=== PATIENT | female | born 1960 | race Caucasian/White ===

== ENCOUNTER → 2018-07-21 | Outpatient (CLI) | payer BC ==
--- NOTE | 2018-07-22 09:22 | MR ---
EXAMINATION TYPE: MR brain wo/w con DATE OF EXAM: 07/21/2018 7:10 PM COMPARISON: NONE HISTORY: Occipital neuralgia rt side, colon ca diagnosed Apr 2018 CONTRAST: Patient received 12 mL intravenous Gadavist gadolinium contrast. Multiplanar and multispin-echo imaging of the brain was performed . Pre and post contrast enhanced i mages are obtained. The ventricles, basal cisterns and sulci overlying the cerebral convexities are mildly enlarged. There is evidence of mild periventricular white matter ischemic demyelination. Focus of increased signal right midbrain measuring 6 mm on inversion recovery data set. Additional in version recovery data set increased signal involving the right thalamus measuring 8 mm. Heterogenous increased signal involving the basal ganglia right greater than left. No acute edema is seen on diffusion weighted imaging. There is no evidence for midline shift or mass effect. Acute intracranial hemorrhage or extra-axial collection is not evident. No enhancing lesions are seen. The paranasal sinuses and mastoid air cells are well-aerated. IMPRESSION: 1. Foci of inversion recovery data set increased signal right midbrain and right thalamus as well as the bilateral basal ganglia are nonspecific and could reflect demyelinating disease, sequela vasculit is or chronic migraine headaches as well as Lyme's disease among other possibilities. 2. Age-related atrophic and chronic small vessel ischemic change. No acute intracranial process at t his time. 3. No enhancing lesions are seen.
== END | disposition home or self-care (01) ==
LOC: RADMRIMAIN 17:37
PROVIDERS: ATTEND Psychiatry & Neurology Neurology
DX: G31.1 Senile degeneration of brain, not elsewhere classified (principal); I67.82 Cerebral ischemia
CPT/HCPCS: 82565; 70553; 36415; A9585

== ENCOUNTER → 2022-06-19 | Outpatient (CLI) | payer BC ==
--- NOTE | 2022-06-19 15:07 | MM ---
Reason for Exam: Clinical finding. Last mammogram was performed 1 year(s) and 9 month(s) ago. Indicated Problems: Lump or thickening of the left side (size 10). Patient History: Menarche at age 12. First Full-Term at age 23. Postmenopausal. Risk Values: Antonietta 5 year model risk: 1.4%. NCI Lifetime model risk: 6.2%. Prior Study Comparison: 03/26/2020 Bilateral MG screening mammo w CAD - 2, Unknown. 05/01/2020 Bilateral MG screening mammo w CAD - 2, Unknown. 09/19/2020 Bilateral MG screening mammo w CAD - 2, Unknown. Tissue Density: The breast tissue is heterogeneously dense. This may lower the sensitivity of mammography. Findings: Analyzed By CAD. Palpable area on mammography correlates with masslike fibroglandular tissue best appreciated on and MLO imaging measuring up to 2.8 cm approximately 10 cm from the breast. Further evaluation with ultrasound recommended. No suspicious calcification.Palpable area on mammography correlates with masslike fibroglandular tissue best appreciated on and MLO imaging measuring up to 2.8 cm approximately 10 cm from the breast. Further evaluation with ultrasound recommended. No suspicious calcification. No suspicious masses calcifications or distortions in the right breast. Overall Assessment: Incomplete: need additional imaging evaluation, BI-RAD 0 Management: Diagnostic Breast Ultrasound of the left breast. A clinical breast exam by your physician is recommended on an annual basis and results should be correlated with mammographic findings. This exam should not preclude additional follow-up of suspicious palpable abnormalities. Results were given to the patient verbally at the time of exam. Electronically signed and approved by: Cornelio Stanton DO
== END | disposition home or self-care (01) ==
LOC: RADMAMWWP 14:06
PROVIDERS: ATTEND Obstetrics & Gynecology
DX: N63.20 Unspecified lump in the left breast, unspecified quadrant (principal); Z78.0 Asymptomatic menopausal state
CPT/HCPCS: 77062; 77066

== ENCOUNTER → 2022-07-02 | Day surgery (SDC) | payer BC | LOC: RADUSWWP 12:36 | PROVIDERS: ATTEND Surgery | DX: N60.12 Diffuse cystic mastopathy of left breast (principal); N60.92 Unspecified benign mammary dysplasia of left breast; R92.8 Other abnormal and inconclusive findings on diagnostic imaging of breast | CPT/HCPCS: 88305; 77065; 19083; A4648 ==

== ENCOUNTER → 2022-07-23 | Outpatient (CLI) | payer BC ==
[2022-07-23 14:23] VITALS: BP 104/69; PULSE 84; RESP 17; TEMP 97.9
--- NOTE | 2022-07-23 14:45 | P.GSHP ---
History of Present Illness H&P Date: 07/23/22 Chief Complaint: left breast lump Maru is a 61 year old white female with a complaint of a fullness in her left breast. She had a bilateral mammogram on 06-19-22 which led to an ultrasound on the same date of the left breast. The pathology was felt to be benign specific. This was reviewed with Dr. Vanessa. repeat left breast mammogram in 6 months was recommended. The patient is not complaining of any new lumps masses or nodules of concern in either breast. She has never had any surgery on her breast. She does not complain of any recent trauma or infection in the breast. Caffeine: 1 cup/day nicotine: none chocolate: occasional BCP: 5 years hormones: none Family history: none Hormonal History: menarche: 12 , breast fed: no, age at first : 22 menopause: 54 Surgical History: colon resection for cancer, 2018 bone removed from left toe Medical History: HTN Social History: nicotine: none alcohol: monthly drugs: none - Constitutional Constitutional: Denies chills, Denies fever - EENT Eyes: denies blurred vision, denies pain Ears: deny: decreased hearing, tinnitus Ears, nose, mouth and throat: Denies headache, Denies sore throat - Breasts Breasts: bilateral: as per HPI - Cardiovascular Cardiovascular: Denies chest pain, Denies shortness of breath - Respiratory Respiratory: Denies cough, Denies 7 - Gastrointestinal Gastrointestinal: Denies abdominal pain, Denies diarrhea, Denies nausea, Denies vomiting - Genitourinary (Female) Genitourinary: Denies dysuria, Denies hematuria - Menstruation Menstruation: Reports postmenopausal - Musculoskeletal Musculoskeletal: Denies myalgias - Integumentary Integumentary: Denies pruritus, Denies rash - Neurological Neurological: Denies numbness, Denies weakness - Psychiatric Psychiatric: Denies anxiety, Denies depression - Endocrine Endocrine: Denies fatigue, Denies weight change - Hematologic/Lymphatic Comment: none - Allergic/Immunologic Allergic/Immunologic: Reports as per HPI Past Medical History Past Medical History: Hypertension Additional Past Medical History / Comment(s): Osteoporosis History of Any Multi-Drug Resistant Organisms: None Reported Additional Past Surgical History / Comment(s): Colon cancer 2018 with surgery, no radiation or chemo Past Anesthesia/Blood Transfusion Reactions: No Reported Reaction Past Psychological History: No Psychological Hx Reported Smoking Status: Never smoker Past Alcohol Use History: Occasional Past Drug Use History: None Reported Medications and Allergies Home Medications Medication Instructions Recorded Confirmed Type Alendronate Sodium [Fosamax] 70 mg PO WEEKLY 06/23/22 07/23/22 History Calcium Carbonate/Vitamin D3 2 each PO DAILY 06/23/22 07/23/22 History [Calcium 600 mg-D3 10 Mcg (400 Iu)] Cyanocobalamin [Vitamin B-12 1,000 mcg IM QMONTHLY 06/23/22 07/23/22 History Injection] Ergocalciferol [Vitamin D2 (1250 1,250 mcg PO WEEKLY 06/23/22 07/23/22 History Mcg = 95864 Iu)] hydroCHLOROthiazide [Hydrodiuril] 25 mg PO DAILY 06/23/22 07/23/22 History lisinopriL [Prinivil] 10 mg PO DAILY 06/23/22 07/23/22 History Allergies Allergy/AdvReac Type Severity Reaction Status Date / Time No Known Allergies Allergy Verified 07/23/22 14:06 Surgical - Exam Vital Signs Temp Pulse Resp BP Pulse Ox 97.9 F 84 17 104/69 96 07/23/22 14:21 07/23/22 14:21 07/23/22 14:21 07/23/22 14:21 07/23/22 14:21 BMI: 41.8 - General no distress - Eyes normal ocular movement - Neck trachea midline - Respiratory normal respiratory effort, clear to auscultation - Cardiovascular Rhythm: regular Heart Sounds: normal: S1, S2 - Abdomen Abdomen: soft, non tender, no guarding, no rigid, no rebound - Integumentary normal turgor - Neurologic no disoriented, no combative - Musculoskeletal normal gait, normal posture - Psychiatric oriented to time, oriented to person, oriented to place, speech is normal, memory intact Breast Exam: BRA: 42D inspection: Bilateral grade 2/3 ptosis Palpation: Right breast: Multi-positional exam fibrocystic changes no dominant masses or nodules of concern Right axilla: No adenopathy of concern Left breast: Multi-positional exam fibrocystic changes no dominant masses or nodules of concern Left axilla: No adenopathy of concern Results Mammogram and ultrasound personally reviewed with Dr. Salinas Assessment and Plan Assessment: Impression: Fibrocystic breast changes Personal history of colon cancer did not have chemo or radiation therapy Patient status post [place] [address] felt to be benign and concordant Plan: Repeat left breast mammogram and ultrasound in 6 months with position exam at that time At this time there is nothing which would warrant interventional biopsy either on palpation or radiographically If patient notes anything of concern she will call us sooner CC: DR. Caro
== END ==
LOC: WWCWWP 13:54
PROVIDERS: ATTEND Surgery
DX: N60.22 Fibroadenosis of left breast (principal); I10 Essential (primary) hypertension; M81.0 Age-related osteoporosis without current pathological fracture

== ENCOUNTER → 2022-12-31 | Outpatient (CLI) | payer BC ==
--- NOTE | 2022-12-31 13:22 | MM ---
Reason for Exam: Follow-up at short interval from prior study. Last screening mammogram was performed 7 month(s) ago. Patient History: Menarche at age 12. First Full-Term at age 23. Postmenopausal. 07/02/2022, Benign US biopsy breast VAD LT on the left side. Risk Values: Antonietta 5 year model risk: 1.7%. NCI Lifetime model risk: 7.1%. Prior Study Comparison: 09/19/2020 Bilateral MG screening mammo w CAD - 2, Unknown. 06/19/2022 Bilateral MG 3D diag mammo w/cad [facility]. 07/02/2022 Left MG diagnostic mammo LT wo CAD., [facility]. Tissue Density: Left: The breast tissue is heterogeneously dense. This may lower the sensitivity of mammography. Findings: Analyzed By CAD. Postprocedural changes with biopsy clip present. No new suspicious masses, calcifications or distortions. Overall Assessment: Incomplete: need additional imaging evaluation, BI-RAD 0 Management: Diagnostic Breast Ultrasound of the left breast. Results were given to the patient verbally at the time of exam. Patient should continue monthly self-breast exams. A clinical breast exam by your physician is recommended on an annual basis. This exam should not preclude additional follow-up of suspicious palpable abnormalities. Note on Antonietta scores and lifetime risk: 1. A Antonietta score greater than 3% is considered moderate risk. If this is the case, consider specialist referral to assess eligibility for a risk reducing agent. 2. If overall lifetime risk for the development of breast cancer is 20% or higher, the patient may qualify for future screening with alternating mammogram and breast MRI. Electronically signed and approved by: Cornelio Stanton DO
--- NOTE | 2022-12-31 14:08 | USB ---
Reason for Exam: Follow-up at short interval from prior study. Patient History: Menarche at age 12. First Full-Term at age 23. Postmenopausal. 07/02/2022, Benign US biopsy breast VAD LT on the left side. Risk Values: Antonietta 5 year model risk: 1.7%. NCI Lifetime model risk: 7.1%. Technique: Method: Targeted. Prior Study Comparison: 09/19/2020 Bilateral MG screening mammo w CAD - 2, Unknown. 06/19/2022 Bilateral MG 3D diag mammo w/cad [facility]. 07/02/2022 Left MG diagnostic mammo LT wo CAD., [facility]. Findings: The lower section of the breast of the left breast, the axilla of the left breast and the retroareolar of the left breast were scanned. Imaged: Ultrasound imaging of: Area of concern, retroareolar region and axilla. No evidence for organizing fluid collection or mass. Overall Assessment: Benign, BI-RAD 2 Management: Diagnostic Mammogram of both breasts in 1 year. A clinical breast exam by your physician is recommended on an annual basis and results should be correlated with mammographic findings. This exam should not preclude additional follow-up of suspicious palpable abnormalities. Results were given to the patient verbally at the time of exam. Electronically signed and approved by: Cornelio Stanton DO
== END | disposition home or self-care (01) ==
LOC: RADMAMWWP 12:43
PROVIDERS: ATTEND Surgery
DX: R92.8 Other abnormal and inconclusive findings on diagnostic imaging of breast (principal); Z78.0 Asymptomatic menopausal state
CPT/HCPCS: 77061; 77065

== ENCOUNTER → 2023-01-01 | Outpatient (CLI) | payer BC ==
--- NOTE | 2023-01-01 12:47 | P.PN ---
Subjective Progress Note Date: 01/01/23 fibrocystic breast disease Maru is a 62 year old white female with a complaint of a fullness in her left breast. She had a bilateral mammogram on 06-19-22 which led to an ultrasound on the same date of the left breast. The pathology was felt to be benign specific. This was reviewed with Dr. Vanessa. repeat left breast mammogram in 6 months was recommended. She underwent a left breast mammogram and ultrasound on which was benign BIRADS 2. She will be due for bilateral mammogram in June 2023 . The patient is not complaining of any new lumps masses or nodules of concern in either breast. She has never had any surgery on her breast. She does not complain of any recent trauma or infection in the breast. Caffeine: 1 cup/day nicotine: none chocolate: occasional BCP: 5 years hormones: none Family history: none Hormonal History: menarche: 12 , breast fed: no, age at first : 22 menopause: 54 Surgical History: colon resection for cancer, 2018 bone removed from left toe Medical History: HTN Social History: nicotine: none alcohol: monthly drugs: none - Constitutional Constitutional: Denies chills, Denies fever - EENT Eyes: denies blurred vision, denies pain Ears: deny: decreased hearing, tinnitus Ears, nose, mouth and throat: Denies headache, Denies sore throat - Breasts Breasts: bilateral: as per HPI - Cardiovascular Cardiovascular: Denies chest pain, Denies shortness of breath - Respiratory Respiratory: Denies cough, Denies 7 - Gastrointestinal Gastrointestinal: Denies abdominal pain, Denies diarrhea, Denies nausea, Denies vomiting - Genitourinary (Female) Genitourinary: Denies dysuria, Denies hematuria - Menstruation Menstruation: Reports postmenopausal - Musculoskeletal Musculoskeletal: Denies myalgias - Integumentary Integumentary: Denies pruritus, Denies rash - Neurological Neurological: Denies numbness, Denies weakness - Psychiatric Psychiatric: Denies anxiety, Denies depression - Endocrine Endocrine: Denies fatigue, Denies weight change - Hematologic/Lymphatic Comment: none - Allergic/Immunologic Allergic/Immunologic: Reports as per HPI Past Medical History Past Medical History: Hypertension Additional Past Medical History / Comment(s): Osteoporosis History of Any Multi-Drug Resistant Organisms: None Reported Additional Past Surgical History / Comment(s): Colon cancer 2018 with surgery, no radiation or chemo Past Anesthesia/Blood Transfusion Reactions: No Reported Reaction Past Psychological History: No Psychological Hx Reported Smoking Status: Never smoker Past Alcohol Use History: Occasional Past Drug Use History: None Reported Medications and Allergies Home Medications Medication Instructions Recorded Confirmed Type Alendronate Sodium [Fosamax] 70 mg PO WEEKLY 06/23/22 07/23/22 History Calcium Carbonate/Vitamin D3 2 each PO DAILY 06/23/22 07/23/22 History [Calcium 600 mg-D3 10 Mcg (400 Iu)] Cyanocobalamin [Vitamin B-12 1,000 mcg IM QMONTHLY 06/23/22 07/23/22 History Injection] Ergocalciferol [Vitamin D2 (1250 1,250 mcg PO WEEKLY 06/23/22 07/23/22 History Mcg = 37159 Iu)] hydroCHLOROthiazide [Hydrodiuril] 25 mg PO DAILY 06/23/22 07/23/22 History lisinopriL [Prinivil] 10 mg PO DAILY 06/23/22 07/23/22 History Allergies Allergy/AdvReac Type Severity Reaction Status Date / Time No Known Allergies Allergy Verified 07/23/22 14:06 Objective - Constitutional General appearance: Present: cooperative - EENT Eyes: Present: EOMI ENT: Present: hearing grossly normal - Neck Neck: Present: normal ROM - Respiratory Respiratory: bilateral: CTA - Cardiovascular Rhythm: regular Heart sounds: normal: S1, S2 - Gastrointestinal General gastrointestinal: Present: soft - Integumentary Integumentary: Present: normal turgor - Musculoskeletal Musculoskeletal: Present: gait normal - Psychiatric Psychiatric: Present: A&O x's 3, appropriate affect, intact judgment & insight - Additional findings Additional findings: Breast Exam: BRA: 42D inspection: Bilateral grade 2/3 ptosis Palpation: Right breast: Multi-positional exam fibrocystic changes no dominant masses or nodules of concern Right axilla: No adenopathy of concern Left breast: Multi-positional exam fibrocystic changes no dominant masses or nodules of concern Left axilla: No adenopathy of concern Assessment and Plan Assessment: Impression: Fibrocystic breast changes Personal history of colon cancer did not have chemo or radiation therapy Patient status [place] [address] felt to be benign and concordant Plan: Repeat left breast mammogram and ultrasound performed on 62 BIRADS 2 At this time there is nothing which would warrant interventional biopsy either on palpation or radiographically Lateral mammogram June 2023 with physician exam at that time If patient notes anything of concern she will call us sooner CC: DR. Caro
== END ==
LOC: WWCWWP 11:47
PROVIDERS: ATTEND Surgery
DX: N60.19 Diffuse cystic mastopathy of unspecified breast (principal); M81.0 Age-related osteoporosis without current pathological fracture; I10 Essential (primary) hypertension; Z85.038 Personal history of other malignant neoplasm of large intestine

== ENCOUNTER → 2023-06-21 | Outpatient (CLI) | payer BC ==
--- NOTE | 2023-06-21 10:50 | MM ---
Reason for Exam: Follow-up at short interval from prior study. Last screening mammogram was performed 12 month(s) ago. Patient History: Menarche at age 12. First Full-Term at age 23. Postmenopausal. 07/02/2022, Benign US biopsy breast VAD LT on the left side. Risk Values: Antonietta 5 year model risk: 1.7%. NCI Lifetime model risk: 7.1%. Tissue Density: The breast tissue is heterogeneously dense. This may lower the sensitivity of mammography. Findings: Analyzed By CAD. Chronic nodularity seen bilaterally as well as benign-appearing calcifications. No suspicious masses or distortion. Overall Assessment: Benign, BI-RAD 2 Management: Screening Mammogram of both breasts in 1 year. . Results were given to the patient verbally at the time of exam. Patient should continue monthly self-breast exams. A clinical breast exam by your physician is recommended on an annual basis. This exam should not preclude additional follow-up of suspicious palpable abnormalities. Note on Antonietta scores and lifetime risk: 1. A Antonietta score greater than 3% is considered moderate risk. If this is the case, consider specialist referral to assess eligibility for a risk reducing agent. 2. If overall lifetime risk for the development of breast cancer is 20% or higher, the patient may qualify for future screening with alternating mammogram and breast MRI. Electronically signed and approved by: David Diaz M.D. Radiologis
== END | disposition home or self-care (01) ==
LOC: RADMAMWWP 10:21
PROVIDERS: ATTEND Surgery
DX: R92.333 Mammographic heterogeneous density, bilateral breasts (principal); Z78.0 Asymptomatic menopausal state
CPT/HCPCS: 77062; 77066

== ENCOUNTER → 2024-06-23 | Outpatient (CLI) | payer BC ==
--- NOTE | 2024-06-26 18:05 | MM ---
Reason for Exam: Screening (asymptomatic). Last screening mammogram was performed 12 month(s) ago. Patient History: Menarche at age 12. First Full-Term at age 23. Postmenopausal. 07/02/2022, Benign US biopsy breast VAD LT on the left side. Risk Values: Antonietta 5 year model risk: 1.7%. NCI Lifetime model risk: 6.9%. Prior Study Comparison: 07/02/2022 Left MG diagnostic mammo LT wo CAD., [facility]. 12/31/2022 Left MG 3D diag mammo w/cad LT, [facility]. 06/21/2023 Bilateral MG 3D diag mammo w/cad [facility]. Tissue Density: The breasts are heterogeneously dense, which may obscure small masses. Findings: Analyzed By CAD. Unchanged bilateral areas of asymmetric density. There is no suspicious group of microcalcifications or new suspicious mass in either breast. Overall Assessment: Benign, BI-RAD 2 Management: Screening Mammogram of both breasts in 1 year. . Patient should continue monthly self-breast exams. A clinical breast exam by your physician is recommended on an annual basis. This exam should not preclude additional follow-up of suspicious palpable abnormalities. Note on Antonietta scores and lifetime risk: 1. A Antonietta score greater than 3% is considered moderate risk. If this is the case, consider specialist referral to assess eligibility for a risk reducing agent. 2. If overall lifetime risk for the development of breast cancer is 20% or higher, the patient may qualify for future screening with alternating mammogram and breast MRI. [facility], , 06/26/2024 6:03 PM. Electronically signed and approved by: Choco Salinas M.D. Radiologist
== END | disposition home or self-care (01) ==
LOC: RADMAMWWP 12:28
PROVIDERS: ATTEND Surgery
DX: Z12.31 Encounter for screening mammogram for malignant neoplasm of breast (principal); Z78.0 Asymptomatic menopausal state; R92.333 Mammographic heterogeneous density, bilateral breasts
CPT/HCPCS: 77063; 77067

== ENCOUNTER → 2024-07-06 | Outpatient (CLI) | payer BC ==
[2024-07-06 09:20] VITALS: BP 132/85; PULSE 59; RESP 17; TEMP 98.2
--- NOTE | 2024-07-06 09:21 | P.PN ---
Subjective Progress Note Date: 07/06/24 Principal diagnosis: fibrocystic breast disease 07-05-24 fibrocystic breast disease Maru is a 63 year old white female with a complaint of a fullness in her left breast. She had a bilateral mammogram on 06-19-22 which led to an ultrasound on the same date of the left breast. The pathology was felt to be benign specific. This was reviewed with Dr. Vanessa. repeat left breast mammogram in 6 months was recommended. She underwent a left breast mammogram and ultrasound on 6222 which was benign BIRADS 2. She will be due for bilateral mammogram in June 2023 . The patient is not complaining of any new lumps masses or nodules of concern in either breast. She has never had any surgery on her breast. She does not complain of any recent trauma or infection in the breast. Bilateral mammogram on 06-23-24 BIRAD 2, personally reviewed and interpreted 6.9% Antonietta 5-year risk 1.7% Very dense we have discussed MRI Caffeine: 1 cup/day nicotine: none chocolate: occasional BCP: 5 years hormones: none Family history: none Hormonal History: menarche: 12 , breast fed: no, age at first : 22 menopause: 54 Surgical History: colon resection for cancer, 2018 bone removed from left toe Medical History: HTN Social History: nicotine: none alcohol: monthly drugs: none - Constitutional Constitutional: Denies chills, Denies fever - EENT Eyes: denies blurred vision, denies pain Ears: deny: decreased hearing, tinnitus Ears, nose, mouth and throat: Denies headache, Denies sore throat - Breasts Breasts: bilateral: as per HPI - Cardiovascular Cardiovascular: Denies chest pain, Denies shortness of breath - Respiratory Respiratory: Denies cough - Gastrointestinal Gastrointestinal: Denies abdominal pain, Denies diarrhea, Denies nausea, Denies vomiting - Genitourinary (Female) Genitourinary: Denies dysuria, Denies hematuria - Menstruation Menstruation: Reports postmenopausal - Musculoskeletal Musculoskeletal: Denies myalgias - Integumentary Integumentary: Denies pruritus, Denies rash - Neurological Neurological: Denies numbness, Denies weakness - Psychiatric Psychiatric: Denies anxiety, Denies depression - Endocrine Endocrine: Denies fatigue, Denies weight change - Hematologic/Lymphatic Comment: none - Allergic/Immunologic Allergic/Immunologic: Reports as per HPI Past Medical History Past Medical History: Hypertension Additional Past Medical History / Comment(s): Osteoporosis History of Any Multi-Drug Resistant Organisms: None Reported Additional Past Surgical History / Comment(s): Colon cancer 2018 with surgery, no radiation or chemo Past Anesthesia/Blood Transfusion Reactions: No Reported Reaction Past Psychological History: No Psychological Hx Reported Smoking Status: Never smoker Past Alcohol Use History: Occasional Past Drug Use History: None Reported Medications and Allergies Home Medications Medication Instructions Recorded Confirmed Type Alendronate Sodium [Fosamax] 70 mg PO WEEKLY 06/23/22 07/23/22 History Calcium Carbonate/Vitamin D3 2 each PO DAILY 06/23/22 07/23/22 History [Calcium 600 mg-D3 10 Mcg (400 Iu)] Cyanocobalamin [Vitamin B-12 1,000 mcg IM QMONTHLY 06/23/22 07/23/22 History Injection] Ergocalciferol [Vitamin D2 (1250 1,250 mcg PO WEEKLY 06/23/22 07/23/22 History Mcg = 47519 Iu)] hydroCHLOROthiazide [Hydrodiuril] 25 mg PO DAILY 06/23/22 07/23/22 History lisinopriL [Prinivil] 10 mg PO DAILY 06/23/22 07/23/22 History Allergies Allergy/AdvReac Type Severity Reaction Status Date / Time No Known Allergies Allergy Verified 07/23/22 14:06 Objective - Constitutional General appearance: Present: cooperative - EENT Eyes: Present: EOMI ENT: Present: hearing grossly normal - Neck Neck: Present: normal ROM - Respiratory Respiratory: bilateral: CTA - Cardiovascular Rhythm: regular Heart sounds: normal: S1, S2 - Gastrointestinal General gastrointestinal: Present: soft - Integumentary Integumentary: Present: normal turgor - Musculoskeletal Musculoskeletal: Present: gait normal - Psychiatric Psychiatric: Present: A&O x's 3, appropriate affect, intact judgment & insight - Additional findings Additional findings: Breast Exam: BRA: 42D inspection: Bilateral grade 2/3 ptosis Palpation: Right breast: Multi-positional exam fibrocystic changes no dominant masses or nodules of concern Right axilla: No adenopathy of concern Left breast: Multi-positional exam fibrocystic changes no dominant masses or nodules of concern Left axilla: No adenopathy of concern Assessment and Plan Assessment: Impression: Fibrocystic breast changes Personal history of colon cancer did not have chemo or radiation therapy Patient status post left breast ultrasound-guided core biopsy on felt to be benign and concordant bilateral mammogram on 06-23-24 BIRAD 2 Plan: bilateral mammogram in June 2025 with appointment at that time CC: DR. Caro
== END ==
LOC: WWCWWP 09:01
PROVIDERS: ATTEND Surgery
DX: R92.8 Other abnormal and inconclusive findings on diagnostic imaging of breast (principal); N60.11 Diffuse cystic mastopathy of right breast; N60.12 Diffuse cystic mastopathy of left breast; Z85.038 Personal history of other malignant neoplasm of large intestine

== ENCOUNTER → 2025-01-05 | Outpatient (CLI) | payer BC, MEDICARE ==
[2025-01-05 11:03] VITALS: BP 119/60; PULSE 71; RESP 17; TEMP 97.9
--- NOTE | 2025-01-05 11:08 | P.PN ---
Subjective Progress Note Date: 01/05/25 Principal diagnosis: fibrocystic breast changes Subjective Progress Note Date: 01-05-25 Principal diagnosis: fibrocystic breast disease Maru is a 64 year old white female with a complaint of a fullness in her left breast. She had a bilateral mammogram on 06-19-22 which led to an ultrasound on the same date of the left breast. The pathology was felt to be benign specific. This was reviewed with Dr. Vanessa. repeat left breast mammogram in 6 months was recommended. She underwent a left breast mammogram and ultrasound on 6222 which was benign BIRADS 2. She will be due for bilateral mammogram on 06-23-24 which was BIRAD 2. The patient is not complaining of any new lumps masses or nodules of concern in either breast. She has never had any surgery on her breast. She does not complain of any recent trauma or infection in the breast. Bilateral mammogram on 06-23-24 BIRAD 2, personally reviewed and interpreted life time risk: 6.9% Antonietta 5-year risk 1.7% We discussed chemoprophylaxis and at this time she would like to be followed closely. Very dense we have discussed MRI and at this time she wants to be followed closely Caffeine: 1 cup/day nicotine: none chocolate: occasional BCP: 5 years hormones: none Family history: none Hormonal History: menarche: 12 , breast fed: no, age at first : 22 menopause: 54 Surgical History: colon resection for cancer, 2018 bone removed from left toe Medical History: HTN Social History: nicotine: none alcohol: monthly drugs: none - Constitutional Constitutional: Denies chills, Denies fever - EENT Eyes: denies blurred vision, denies pain Ears: deny: decreased hearing, tinnitus Ears, nose, mouth and throat: Denies headache, Denies sore throat - Breasts Breasts: bilateral: as per HPI - Cardiovascular Cardiovascular: Denies chest pain, Denies shortness of breath - Respiratory Respiratory: Denies cough - Gastrointestinal Gastrointestinal: Denies abdominal pain, Denies diarrhea, Denies nausea, Denies vomiting - Genitourinary (Female) Genitourinary: Denies dysuria, Denies hematuria - Menstruation Menstruation: Reports postmenopausal - Musculoskeletal Musculoskeletal: Denies myalgias - Integumentary Integumentary: Denies pruritus, Denies rash - Neurological Neurological: Denies numbness, Denies weakness - Psychiatric Psychiatric: Denies anxiety, Denies depression - Endocrine Endocrine: Denies fatigue, Denies weight change - Hematologic/Lymphatic Comment: none - Allergic/Immunologic Allergic/Immunologic: Reports as per HPI Past Medical History Past Medical History: Hypertension Additional Past Medical History / Comment(s): Osteoporosis History of Any Multi-Drug Resistant Organisms: None Reported Additional Past Surgical History / Comment(s): Colon cancer 2018 with surgery, no radiation or chemo Past Anesthesia/Blood Transfusion Reactions: No Reported Reaction Past Psychological History: No Psychological Hx Reported Smoking Status: Never smoker Past Alcohol Use History: Occasional Past Drug Use History: None Reported Medications and Allergies Home Medications Medication Instructions Recorded Confirmed Type Alendronate Sodium [Fosamax] 70 mg PO WEEKLY 06/23/22 07/23/22 History Calcium Carbonate/Vitamin D3 2 each PO DAILY 06/23/22 07/23/22 History [Calcium 600 mg-D3 10 Mcg (400 Iu)] Cyanocobalamin [Vitamin B-12 1,000 mcg IM QMONTHLY 06/23/22 07/23/22 History Injection] Ergocalciferol [Vitamin D2 (1250 1,250 mcg PO WEEKLY 06/23/22 07/23/22 History Mcg = 58368 Iu)] hydroCHLOROthiazide [Hydrodiuril] 25 mg PO DAILY 06/23/22 07/23/22 History lisinopriL [Prinivil] 10 mg PO DAILY 06/23/22 07/23/22 History Allergies Allergy/AdvReac Type Severity Reaction Status Date / Time No Known Allergies Allergy Verified 07/23/22 14:06 Objective - Vital Signs Vital signs: Intake & Output 01/04/25 01/05/25 01/05/25 18:59 06:59 18:59 Weight 117.48 kg - Constitutional General appearance: Present: cooperative - EENT Eyes: Present: EOMI ENT: Present: hearing grossly normal - Neck Neck: Present: normal ROM - Respiratory Respiratory: bilateral: CTA - Cardiovascular Rhythm: regular Heart sounds: normal: S1, S2 - Integumentary Integumentary: Present: normal turgor - Musculoskeletal Musculoskeletal: Present: gait normal - Psychiatric Psychiatric: Present: A&O x's 3, appropriate affect, intact judgment & insight - Additional findings Additional findings: Breast Exam: BRA: 42D inspection: Bilateral grade 2/3 ptosis Palpation: Right breast: Multi-positional exam fibrocystic changes no dominant masses or nodules of concern Right axilla: No adenopathy of concern Left breast: Multi-positional exam fibrocystic changes no dominant masses or nodules of concern Left axilla: No adenopathy of concern Assessment and Plan Assessment: Impression: Fibrocystic breast changes Personal history of colon cancer did not have chemo or radiation therapy Patient status post left breast ultrasound-guided core biopsy on felt to be benign and concordant bilateral mammogram on 06-23-24 BIRAD 2 Plan: bilateral mammogram in June 2025 with appointment at that time follow up sooner any concerns CC: DR. Walden
== END ==
LOC: WWCWWP 10:31
PROVIDERS: ATTEND Surgery
DX: Z12.31 Encounter for screening mammogram for malignant neoplasm of breast (principal); N60.19 Diffuse cystic mastopathy of unspecified breast; Z85.038 Personal history of other malignant neoplasm of large intestine